=== PATIENT | male | born 1995 | race Caucasian/White ===

== ENCOUNTER → 2016-11-15 | Outpatient (CLI) | payer OTHER ==
--- NOTE | 2016-11-17 07:07 | EKG ---
Date Performed: 11/15/2016 Time Performed: 13:44:28 PTAGE: 20 years EKG: Sinus rhythm . Normal ECG PREVIOUS TRACING : 01/29/2014 11.49 Compared to prior tracing no significant change DOCTOR: Rasta Botello Interpretating Date/Time 11/17/2016 07:04:51
== END ==
LOC: HCAV 13:37
PROVIDERS: ATTEND Psychiatry & Neurology Child & Adolescent Psychiatry
DX: F90.1 Attention-deficit hyperactivity disorder, predominantly hyperactive type (principal); F33.0 Major depressive disorder, recurrent, mild
CPT/HCPCS: 93005